=== PATIENT | female | born 1935 | race Caucasian/White ===

== ENCOUNTER 2016-06-25 11:53 | Emergency (ER) | payer MEDICARE ==
[~2016-06-25] VITALS: Ht 157.5 cm; Wt 78.2 kg
[2016-06-25 11:53] VITALS: BP 104/86; PULSE 63; RESP 20; O2SAT 97
--- NOTE | 2016-06-25 11:55 | ED.REPORT ---
HPI-Chest Pain 40 and Over Date of Service Jun 25, 2016 ED Provider: Car Salgado MD Pt is a 80 y/o female w/ a hx of HTN, hyperlipidemia, dementia, presenting to the ED via EMS with her c/o worsening RUQ abdominal pain / right lower chest pain exacerbated by movement and breathing onset 1 day ago. She has never experienced this before and has no history of cholecystectomy. Pt denies fever, chills, nausea, vomiting, diarrhea, constipation, back pain. Nursing Notes Stated Complaint: RT SIDED CHEST PAIN Nursing Notes Reviewed: Yes Allergies: Coded Allergies: No Known Allergies (Unverified , 06/25/16) General Time Seen by MD: 11:54 Chief Complaint Chest pain Hx Obtained From: Patient, EMS Arrived By: Ambulance Sudden in Onset?: No Onset Occurred: Yesterday Symptom Duration: Intermittent Location: : Chest right Quality: Painful Radiation: : Does not radiate Severity: Current: Moderate Severity: Maximum: Moderate Similar Sx Previous: No Past Medical History Past Medical History Hypothyroid Hypertension Hyperlipidemia Dementia Past Surgical History None reported Smoking History Unknown if Ever Smoker Ambulatory Status Independent Review of Systems Constitutional: Denies: Chills, Fever Respiratory: Reports: Pleuritic pain, Denies: Shortness of breath Cardiovascular: Reports: Chest pain GI: Reports: Abdominal pain, Denies: Constipation, Diarrhea, Nausea, Vomiting Complete sys rev & neg: except as marked. Physical Exam Initial Vital Signs Vital Signs (First) Date Time Temp Pulse Resp B/P Pulse Ox O2 Delivery O2 Flow Rate FiO2 06/25/16 11:53 36.6 63 20 104/86 97 Room Air Initial VS: Reviewed, Vital signs normal Head / Eyes: Atraumatic, Normocephalic, PERRL ENT: Mucous membranes moist, Conjunctiva normal, No scleral icterus Neck: Supple, Full range of motion Extremities: Vascular intact, Neuro intact, No swelling, No tenderness Skin: Warm, Dry, No cyanosis Neurologic: Alert, Oriented, Nonfocal Psychiatric: Mood/affect normal, Behavior normal, Normal thought content Cardiovascular: Heart rate NL, Regular rhythm, Heart sounds NL, No gallop, No murmurs, No rubs, Cap refill not delayed, Peripheral circulation NL Abdomen: Atraumatic, Soft, No guarding, No rebound, No distention, No palpable mass Tenderness/Guarding/Rebound: Positive: Tender RUQ... (Mild), Tender epigastric (mid, mild) Back: Full range of motion, Painless range of motion, No CVA tenderness Interpretation & Diagnostics Lab Results Interpretation Result Diagram: 06/25/16 1230 06/25/16 1230 Test 06/25/16 12:16 06/25/16 12:30 Hold Block Top Tube Received (Received) White Blood Count 10.7th/mm3 (3.8-10.1) Red Blood Count 4.26mil/mm3 (3.90-5.20) Hemoglobin 13.2g/dL (12.0-15.6) Hematocrit 41.2% (35.0-46.0) Mean Corpuscular Volume 96.7fL (81-100) Mean Corpuscular Hemoglobin 31.0pg (27.0-35.0) Mean Corpuscular Hemoglobin Concent 32.0% (32.0-37.0) Red Cell Distribution Width 14.3% (12.3-15.4) Platelet Count 199bil/L (150-400) Neutrophils (%) (Auto) 74.1% (40-74) Lymphocytes (%) (Auto) 13.2% (14-46) Monocytes (%) (Auto) 12.3% (4-12) Eosinophils (%) (Auto) 0% (0-5) Basophils (%) (Auto) 0.2% (0-3) Sodium Level 138mEq/L (134-144) Potassium Level 4.0mEq/L (3.5-5.2) Chloride Level 101mEq/L (97-108) Carbon Dioxide Level 21mmol/L (18-29) Blood Urea Nitrogen 18mg/dL (8-27) Creatinine 0.77mg/dL (0.57-1.00) Estimat Glomerular Filtration Rate 104mL/min (>59) Glucose Level 132mg/dL (60-99) Calcium Level 9.4mg/dL (8.5-10.1) Magnesium Level 2.0mg/dL (1.6-2.6) Total Bilirubin 1.1mg/dL (0.0-1.2) Aspartate Amino Transf (AST/SGOT) 18U/L (0-50) Alanine Aminotransferase (ALT/SGPT) 10U/L (0-32) Alkaline Phosphatase 116U/L (25-165) Total Protein 7.3g/dL (6.4-8.4) Albumin 4.1g/dL (3.4-5.0) Lipase 85U/L (13-60) ECG Interpretation ECG Interpretation: Sinus rhythm rate 58 APC Time: 13:03 Interpreted by: ED physician Normal ECG Interpretation: No acute ischemic changes Re-Eval/Medical Decision Time of Eval: 14:16 Patient Status: Condition improved, Complete relief Re-Evaluation/Progress Note: Pt rechecked. Pain improved. Discussed workup thus far and possible need for imaging for further evaluation. Abdomen is reexamined, there is no tenderness currently. Counseled Regarding: Diagnosis, Lab results, Need for follow-up, When/why to return to ED Discharge & Departure Primary Impression: Abdominal pain Disposition: Home Discharge Condition All VS Reviewed: Yes Condition: Stable Patient Instructions: Acute Abdominal Pain (ED) Additional Instructions: No dangerous cause for the abdominal pain is discovered. I recommend tramadol one or 2 pills every 6 hours as needed for severe pain. Use ondansetron as needed for nausea. Follow-up with Dr. Bateman. Follow-up right away for high fever, excessive vomiting, pain not controllable with the above medications or any other new or severe symptoms. Referrals: Ed Bateman MD (PCP) Scribe Attestation Portions of this note were transcribed by Jose Hedrick. I, Dr. Salgado personally performed the history, physical exam and medical decision-making; I reviewed and confirmed the accuracy of the information in the transcribed note. Signed by Rahul Brown, 06/25/16 - 1230 copies to: Ed Bateman MD, Kirk H MD Jun 25, 2016 11:55 JOSE HEDRICK Jun 25, 2016 12:03
[2016-06-25] MEDS ORDERED: 0.9% Sodium Chloride 1,000 ML IV ONE (12:30)
[2016-06-25] MEDS ORDERED: Ketorolac 15 mg/mL Inj IVPUSH ONE (12:30)
[2016-06-25] MEDS ORDERED: Ondansetron 2 mg/mL 2 mL Inj IVPUSH PRN (12:30)
[2016-06-25 12:49] LABS: BASOPHILS % (AUTO) 0.2 % (0-3); EOSINOPHILS % (AUTO) 0 % (0-5); MONOCYTES % (AUTO) 12.3 % (4-12); Mean Corpuscular Volume 96.7 fL (81-100); NEUTROPHILS % (AUTO) 74.1 % (40-74); Platelet Count 199 bil/L (150-400)
[2016-06-25 14:15] VITALS: BP 106/51; PULSE 67; RESP 20; O2SAT 94
[2016-06-25] MEDS ORDERED: ONDA4TAB9 PO (14:24)
[2016-06-25] MEDS ORDERED: TRAM50TA2 PO (14:24)
== END 2016-06-25 14:30 | disposition home or self-care (01) ==
LOC: SED 11:53
DX: R10.11 Right upper quadrant pain (principal); R07.9 Chest pain, unspecified; I10 Essential (primary) hypertension; E78.5 Hyperlipidemia, unspecified; E03.9 Hypothyroidism, unspecified; F03.90 Unspecified dementia, unspecified severity, without behavioral disturbance, psychotic disturbance, mood disturbance, and anxiety
CPT/HCPCS: 80053; 83690; 83735; 85025; 93005; 96361; 96374; 96375; 99285; J1885; J2405; J7030